=== PATIENT | female | born 1985 | race African-American/Black ===

== ENCOUNTER 2020-05-22 19:01 | Emergency (ER) | payer MEDICAID ==
[~2020-05-22] VITALS: Ht 167.6 cm; Wt 83.0 kg
[2020-05-22] MEDS ORDERED: SODIUM CHLORIDE 0.9% 1,000 ML IV ONE (19:45)
[2020-05-22] MEDS ORDERED: PYRIDOXINE HCL 50MG TABLET PO ONE (19:45)
[2020-05-22] MEDS ORDERED: DIPHENHYDRAMINE 50MG/ML VIAL IV ONE (19:45)
[2020-05-22 20:01] LABS: BASOPHILS % 0.5 % (0.0-2.0); EOSINOPHILS % 1.6 % (0.0-5.0); HEMATOCRIT. 35.9 % (36.0-48.0); HEMOGLOBIN. 11.4 g/dL (12.0-16.0); LYMPHOCYTES % 32.9 % (20.0-50.0); MEAN CORPUSCULAR HEMOGLOBIN 26.8 pg (28.0-32.0); MEAN CORPUSCULAR VOLUME 84.2 fL (81.0-99.0); MEAN PLATELET VOLUME 9.3 fl (7.4-10.4); MONOCYTES % 8.8 % (2.0-8.0); NEUTROPHILS % 56.2 % (40.0-76.0); PLATELET 249 x1000/uL (130-400); RED BLOOD CELL COUNT 4.26 mill/uL (4.2-5.4); RED CELL DISTRIBUTION WIDTH 20.3 % (11.6-14.6)
[2020-05-22 20:05] LABS: CHLORIDE 111 mEq/L (98-107)
[2020-05-22 20:07] LABS: PROTHROMBIN TIME 10.3 sec (9.6-11.0)
[2020-05-22 21:31] LABS: CLARITY URINE CLEAR (CLEAR); COLOR URINE YELLOW (YELLOW); KETONES URINE TRACE (NEGATIVE); LEUKOCYTE ESTERASE URINE 1+ (NEGATIVE); NITRITE URINE NEGATIVE (NEGATIVE); OCCULT BLOOD URINE NEGATIVE (NEGATIVE); PH URINE 6.5 (4.5-8.0); PROTEIN URINE NEGATIVE (NEGATIVE); UROBILINOGEN URINE 0.2 E.U./dL (0.2-1.0)
[2020-05-22] MEDS ORDERED: POTASSIUM CHLORIDE 20MEQ TABLET SR PO NR (22:00)
[2020-05-22] MEDS ORDERED: NITR-87 MT (22:11)
[2020-05-22] MEDS ORDERED: DOXY1TAB3 MT (22:12)
[2020-05-22] MEDS ORDERED: NITROFURANTOIN 100MG M/M CAPSULE PO NR (22:15)
[2020-05-22 22:26] VITALS: BP 138/84
== END 2020-05-22 22:37 | disposition home or self-care (01) ==
LOC: ER 19:01
DX: O21.0 Mild hyperemesis gravidarum (principal); O23.42 Unspecified infection of urinary tract in pregnancy, second trimester; O26.892 Other specified pregnancy related conditions, second trimester; I10 Essential (primary) hypertension; R51.9 Headache, unspecified; R42 Dizziness and giddiness; Z3A.21 21 weeks gestation of pregnancy; Z98.890 Other specified postprocedural states
CPT/HCPCS: 36415; 76805; 80053; 81003; 83690; 85025; 85610; 93005; 96361; 96374; 99285; J1200; J7030